=== PATIENT | male | born 1955 | race African-American/Black ===

== ENCOUNTER 2017-11-30 12:18 | Day surgery (SDC) | payer MEDICARE ==
[2017-11-30 14:51] LABS: Color Of CSF Supernatant COLORLESS (Colorless); Tube # 2; Unspun CSF Color COLORLESS (Colorless)
[2017-11-30 14:55] LABS: CSF Source CSF; Clarity Clear (Clear); Tube # 1
[2017-11-30 14:56] LABS: RBC Count - Manual 435 /cumm (None Seen); WBC/NonHematics Count - Manual 2 /cumm (0-5)
[2017-11-30 15:02] LABS: CSF, Glucose 74 mg/dl (40-70); CSF, Protein 41 mg/dL (15-40)
[2017-11-30 15:08] VITALS: BP 126/75; TEMP 97.1
--- NOTE | 2017-11-30 15:27 | RAD ---
LUMBAR PUNCTURE WITH FLUOROSCOPIC GUIDANCE: Date: 11/30/17 HISTORY: Syphilitic endocarditis. Evaluate for neurosyphilis. COMPARISON: None. EXPOSURE: 0.9 minutes. 925.9 mGy*cm^2. FINDINGS: Two views lumbar spine informatics manager radiograph demonstrate five lumbar-type vertebral bodies. Lumbar spine v ertebral body height is maintained. No fracture. Technically successful lumbar puncture for intrathecal contrast administration. A total of 10 mL of c lear CSF was collected. The patient tolerated the procedure well. No immediate or postprocedure compl ication. TECHNIQUE: Consent obtained for a lumbar puncture under fluoroscopic guidance. The L2-L3 level was deemed approp riate. Skin was prepped and draped in the sterile fashion. 1% lidocaine, buffered with sodium bicarbo steffen, was used for local anesthesia. Under fluoroscopic guidance, a 22 gauge spinal needle was advanc ed into the CSF space. A total of 10 mL of clear CSF was collected. The patient tolerated the procedu re well. No immediate or postprocedure complications. IMPRESSION: Successful lumbar puncture for CSF acquisition. POS: JULIANO
== END 2017-11-30 15:00 | disposition home or self-care (01) ==
LOC: RAD 12:18
PROVIDERS: ATTEND Internal Medicine Infectious Disease
PROC: 009U3ZZ Drainage of Spinal Canal, Percutaneous Approach (ICD-10-PCS; principal; 2017-11-30)
PROC: B01B1ZZ Fluoroscopy of Spinal Cord using Low Osmolar Contrast (ICD-10-PCS; 2017-11-30)
DX: A52.03 Syphilitic endocarditis (principal); Z88.0 Allergy status to penicillin
CPT/HCPCS: 62270; 82945; 84157; 86592; 87070; 87205; 89051

== ENCOUNTER 2018-03-07 13:26 | Emergency (ER) | payer MEDICARE ==
--- NOTE | 2018-03-07 14:16 | RAD ---
TWO VIEWS LEFT HIP: History: Left hip pain. FINDINGS: AP and frogleg views left hip obtained and demonstrate no evidence of left hip fractures, subluxation s, or bony lesions. IMPRESSION: Normal two views left hip. POS: JULIANO
[2018-03-07] MEDS ORDERED: predniSONE 20 MG TAB ONE (14:27)
== END 2018-03-07 14:19 | disposition home or self-care (01) ==
LOC: SCSER 13:26
DX: M16.12 Unilateral primary osteoarthritis, left hip (principal); E78.5 Hyperlipidemia, unspecified; G30.9 Alzheimer's disease, unspecified; F02.80 Dementia in other diseases classified elsewhere, unspecified severity, without behavioral disturbance, psychotic disturbance, mood disturbance, and anxiety; E11.9 Type 2 diabetes mellitus without complications; I10 Essential (primary) hypertension; F17.210 Nicotine dependence, cigarettes, uncomplicated; Z79.84 Long term (current) use of oral hypoglycemic drugs; Z79.899 Other long term (current) drug therapy; Z79.82 Long term (current) use of aspirin
CPT/HCPCS: J7506

== ENCOUNTER 2018-06-15 21:37 | Inpatient (IN) | payer MEDICARE ==
[2018-06-15 22:07] LABS: #Basophils 0.1 thou/uL (0.0-0.2); #Lymphocytes 1.3 thou/uL (1.20-3.40); #Monocytes 0.4 thou/uL (0.11-0.59); #Neutrophils 4.3 thou/uL (1.40-6.50); %Basophils 0.8 % (0.0-1.0); %Eosinophils 0.8 % (0.0-10.0); %Lymphocytes 21.6 % (21.0-51.0); %Monocytes 6.4 % (0.0-10.0); %Neutrophils 70.4 % (42.0-75.0); Hemoglobin 12.3 g/dL (14.0-18.0); Mean Corpuscular HGB CONC 34.3 g/dL (32.0-36.0); Mean Corpuscular Hemoglobin 31.3 pg (27.0-31.0); Mean Corpuscular Volume 91.2 fL (78.0-98.0); Mean Platelet Volume 6.9 fL (7.4-10.4); Platelet Count 265 thou/uL (130-400); Red Blood Cell (RBC) Count 3.94 mill/uL (4.70-6.10); White Blood Cell (WBC) Count 6.1 thou/uL (4.8-10.8)
[2018-06-15 22:28] LABS: ALT (SGPT) 16 U/L (8-55); AST (SGOT) 23 U/L (5-34); Albumin 4.3 g/dL (3.4-4.8); Alkaline Phosphatase 46 U/L (40-150); Anion Gap 16 mmol/L (10-20); BUN (Urea Nitrogen) 12 mg/dL (8.4-25.7); Bilirubin, Total 0.6 mg/dL (0.2-1.2); Calc. Creatinine Clearance 0 mL/min (70-130); Calcium 9.6 mg/dL (7.8-10.44); Carbon Dioxide 23 mmol/L (23-31); Chloride 82 mmol/L (98-107); Estimated GFR-MDRD 67; Globulin 2.7 g/dL (2.4-3.5); Glucose 91 mg/dL (80-115); Potassium 4.1 mmol/L (3.5-5.1)
[2018-06-15 22:43] LABS: Bilirubin Negative (Negative); Blood, Urine Negative (Negative); Clarity CLEAR (Clear); Glucose, Urine (Dipstick) Negative (Negative); Leukocyte Negative (Negative); Nitrite Negative (Negative); Protein, Urine (Dipstick) Negative (Neg-Trace); Specific Gravity, Urine 1.005 (1.002-1.036); Urobilinogen 0.2 mg/dL (0.2-1.0); pH, Urine 5.5 (5.0-9.0)
[2018-06-15 22:43] LABS: Sodium 117 mmol/L (136-145)
[2018-06-15] MEDS ORDERED: Ondansetron PF 4 MG/2 ML Vial ONE (23:50)
[2018-06-16] MEDS ORDERED: Sodium Chloride 0.9% 1,000 ML IV SCH (00:30)
[2018-06-16 02:02] VITALS: BMI 28.8
[2018-06-16 09:48] LABS: Anion Gap 13 mmol/L (10-20); BUN (Urea Nitrogen) 9 mg/dL (8.4-25.7); Calc. Creatinine Clearance 85 mL/min (70-130); Calcium 9.3 mg/dL (7.8-10.44); Carbon Dioxide 24 mmol/L (23-31); Chloride 89 mmol/L (98-107); Estimated GFR-MDRD 83; Glucose 81 mg/dL (80-115); Potassium 3.9 mmol/L (3.5-5.1); Sodium 122 mmol/L (136-145)
[2018-06-16 10:57] LABS: Osmolality, Urine 197 mOsm/kg (300-900)
[2018-06-16 11:01] LABS: Sodium, Urine 26 mmol/L (Not Available)
[2018-06-16] MEDS: Sodium Chloride 0.9% 1,000 ML IV SCH (13:29)
[2018-06-16 14:36] LABS: Anion Gap 11 mmol/L (10-20); BUN (Urea Nitrogen) 9 mg/dL (8.4-25.7); Calc. Creatinine Clearance 79 mL/min (70-130); Calcium 9.3 mg/dL (7.8-10.44); Carbon Dioxide 26 mmol/L (23-31); Chloride 90 mmol/L (98-107); Estimated GFR-MDRD 77; Glucose 123 mg/dL (80-115); Potassium 3.5 mmol/L (3.5-5.1); Sodium 123 mmol/L (136-145)
[2018-06-16 19:40] LABS: Anion Gap 14 mmol/L (10-20); BUN (Urea Nitrogen) 9 mg/dL (8.4-25.7); Calc. Creatinine Clearance 79 mL/min (70-130); Calcium 9.4 mg/dL (7.8-10.44); Carbon Dioxide 23 mmol/L (23-31); Chloride 92 mmol/L (98-107); Estimated GFR-MDRD 77; Glucose 167 mg/dL (80-115); Potassium 3.8 mmol/L (3.5-5.1); Sodium 125 mmol/L (136-145)
--- NOTE | 2018-06-16 20:42 | HP ---
CHIEF COMPLAINT: Abnormal labs and some worsening confusion. HISTORY OF PRESENT ILLNESS: Patient is a very pleasant 63-year-old male who comes in with a history of dementia, also has a history of positive diabetes, hypertension, tobacco abuse, and also positive treponema pallidum test. Patient has been being more confused, so his who is at the bedside bro ught the patient in, so her primary care doctor ordered some labs which indicated that the sodium was 119. The patient was asked to come into the hospital for further evaluation. The patient's is at the bedside states that he has lost about 20 pounds for the last several months. Also, he has no t been really eating very much; however, has been drinking 2-3, [address] Pepper daily. T he patient states "I do not like water." The patient denies any diarrhea, nausea, vomiting. Accordi ng to the patient, he does drink, but he drinks no water. He drinks only Diet Dr Pepper and patient' s states that he has not been eating very much either. Denies any fevers or any chills, any juan st pain, nausea, vomiting or diarrhea. REVIEW OF SYSTEMS: All negative except for the ones mentioned above in the HPI. There were some con cerns about fever; however, the patient's stated that his fever was 99.9 as low grade. PAST MEDICAL HISTORY: History of hyperlipidemia, hypertension, diabetes, Alzheimer's dementia. PAST SURGICAL HISTORY: Appendectomy. SOCIAL HISTORY: The patient currently still smokes a few cigarettes. Denies any alcohol or drug use . ALLERGIES: He has no known allergies. MEDICATIONS: Takes metformin 500 mg twice a day, lisinopril/hydrochlorothiazide 20 mg/25 mg once a d ay, lovastatin 20 mg daily, potassium 20 mEq daily, metoprolol 25 mg b.i.d., donepezil once a day and Namenda 5 mg once a day. PHYSICAL EXAMINATION: VITAL SIGNS: Temperature of 98.8, 91% on room air, 160/80, heart rate of 99. GENERAL: He is awake, alert, oriented x3. CARDIOVASCULAR: S1, S2 present. No murmurs, rubs or gallops. ABDOMEN: Soft, nontender. Bowel sounds are present. EXTREMITIES: No edema. LUNGS: Clear to auscultation. No rhonchi or wheezes noted. NEUROLOGIC: Neurological sanchez, no focal deficits noted. SKIN: Intact. No cuts, bleeding, or bruises noted. LABORATORY DATA: Laboratory results are as of the following; WBC of 6.1, hemoglobin of 12.3, hematoc rit of 35.9, platelets of 265. Chemistry: Sodium initially when he came in, it was 117, potassium o f 4.1, creatinine of 1.31, BUN of 12. LFTs were normal. TSH was 0.9. He also had a chest x-ray don e which essentially was normal. ASSESSMENT AND PLAN: The patient is a very pleasant 63-year-old male who presents to the hospital fo r abnormal laboratory data. 1. Acute metabolic encephalopathy, most likely secondary to hyponatremia. The patient's urine osmol ality was very low, it was 197. Urine appeared to be normal. Patient's serum osmolality was actuall y 261 was low also. Patient is currently on normal saline. His sodium has continued to improve. Al so, consult Nephrology and I did discuss the case with Nephrology also, possibly hypotonic hyponatrem ia. It does not look like SIADH. The patient's told me that her primary care doctor took her o ff of donepezil because they thought maybe that was worsening his confusion. Patient was checked for syphilis back, I believe in November and also had a CSF checked. CSF was negative for treponema pallid um antibody; however, the serum was positive. Gonorrhea was negative. HIV was negative. At this ti me, the patient was instructed to [facility]. Torin tapia, the states that patient has not gone since there was an issue with finances. She stated that she will take him next week once she gets paid. There is an allergy to PENICILLIN; however, juliocesar portillo's feels that this is most likely secondary to needles versus an actual PENICILLIN allergy. She has been with him for 14 years and does not recall anything and he is not really able to provide a very good history; however, he does agree that he is very scared of needles. 2. Hypertension. We will continue his medications. 3. Diabetes. We will continue his antidiabetics and check Accu-Cheks. 4. Mild acute kidney injury which has been resolved. 5. Smoking session, the patient was advised against smoking. 6. Deep venous thrombosis prophylaxis. We will put the patient on subcu heparin.
[2018-06-16] MEDS: Simvastatin 5 MG TAB PO SCH (21:23)
[2018-06-16] MEDS: Metoprolol Tartrate 25 MG TAB PO SCH (21:23)
--- NOTE | 2018-06-17 04:00 | CON ---
DATE OF CONSULTATION: 06/17/2018 CONSULTING PHYSICIAN: Trevin Ziegler MD REQUESTING PHYSICIAN: Lillian Herbert MD REASON FOR CONSULTATION: Symptomatic hyponatremia. IMPRESSION: 1. Severe hyponatremia. This is likely in the context of poor osmolar intake compounded by the continued use of hydrochlorothiazide. 2. Worsening mental status change, this level of hyponatremia is likely to be contributing to these mental status. PLAN: 1. Permanently discontinue hydrochlorothiazide. 2. IV fluid resuscitation with normal saline. 3. Encourage increased p.o. osmolar intake in the way of of increased animal meat consumption. 4. Further management to be dependent on the clinical course. HISTORY OF PRESENT ILLNESS: History is that of a 63-year-old gentleman who was brought into the hospital because of abnormal labs. The patient has been noted to be experiencing worsening mental status for which patient presented to the primary care physician. Laboratory investigation was done that revealed sodium of 119, so as need to admit this patient. The patient admitted to drinking essentially soda and not much of any p.o. intake. As a matter of according to record, the patient has lost about 20 pounds in the past few months. As a result of these severe hyponatremia, decision has been taken to involve Renal in the management of this case. PAST MEDICAL HISTORY: Significant for dyslipidemia, hypertension, Alzheimer's dementia, diabetes and history of syphilis infection. SOCIAL HISTORY: Significant for tobacco use. No alcohol, no illicit drug use. ALLERGIES: No known drug allergy. FAMILY HISTORY: None significantly related to the presenting illness. REVIEW OF SYSTEMS: Highly limited given the mental status of this patient. PHYSICAL EXAMINATION: GENERAL: The patient is in no obvious distress VITAL SIGNS: Afebrile, temperature 99, pulse 87, respiratory rate of 18, O2 sat 96% with a blood pressure 113/63. HEENT: Unremarkable. CARDIOVASCULAR SYSTEM: First and second heart sounds were heard. RESPIRATORY SYSTEM: Clear to auscultation. DIGESTIVE: Revealed a benign abdomen. EXTREMITIES: No peripheral edema. SKIN: No new gross rash. LYMPHATICS: No peripheral lymphadenopathy. BRIEF SUMMARY: A 63-year-old gentleman who presented here with mental status change, noted with severe hyponatremia. Thank you for this consultation. We will follow with you. AMY
[2018-06-17] MEDS: Aspirin 81 mg Enteric Coated Tablet PO SCH (08:34)
[2018-06-17] MEDS: Metoprolol Tartrate 25 MG TAB PO SCH ×2 (08:34→21:00)
[2018-06-17 09:35] LABS: Anion Gap 14 mmol/L (10-20); BUN (Urea Nitrogen) 8 mg/dL (8.4-25.7); Calc. Creatinine Clearance 81 mL/min (70-130); Calcium 9.9 mg/dL (7.8-10.44); Carbon Dioxide 23 mmol/L (23-31); Chloride 95 mmol/L (98-107); Estimated GFR-MDRD 79; Glucose 106 mg/dL (80-115); Potassium 3.9 mmol/L (3.5-5.1); Sodium 128 mmol/L (136-145)
[2018-06-17] MEDS: Sodium Chloride 0.9% 1,000 ML IV SCH (13:11)
--- NOTE | 2018-06-17 15:21 | PDOC.PN ---
- Subjective Encounter Start Date: 06/17/18 Encounter Start Time: 12:30 Subjective: pt up in bed no complains - Objective Vital Signs & Weight: Vital Signs (12 hours) Temp Pulse Resp BP Pulse Ox 06/17/18 11:57 98.5 F 69 20 119/62 98 06/17/18 08:00 98.4 F 77 16 130/73 98 06/17/18 07:40 96 06/17/18 04:50 98.1 F 68 14 128/75 100 Weight Weight 191 lb I&O: 06/16/18 06/17/18 06/18/18 06:59 06:59 06:59 Intake Total 525 1150 Balance 525 1150 Result Diagrams: 06/15/18 21:54 06/17/18 08:56 Additional Labs: Accuchecks 06/17/18 06/17/18 06/16/18 10:48 06:51 20:41 POC Glucose 161 H 97 231 H 06/16/18 17:47 POC Glucose 100 Phys Exam - Physical Examination Neck: no nodes, no JVD, supple, full ROM Respiratory: no wheezing, no rales, no rhonchi, wheezing present, clear to auscultation bilateral Cardiovascular: RRR, no significant murmur, no rub, gallop, irregular Dx/Plan (1) Hyponatremia Code(s): E87.1 - HYPO-OSMOLALITY AND HYPONATREMIA Status: Acute (2) Dementia Code(s): F03.90 - UNSPECIFIED DEMENTIA WITHOUT BEHAVIORAL DISTURBANCE Status: Acute (3) Diabetes Code(s): E11.9 - TYPE 2 DIABETES MELLITUS WITHOUT COMPLICATIONS Status: Acute - Plan pt does not eat much at home, low solute -: his Na has improved -: possible discharge in am when ok with nephrology -: pt's will take him to health clinic for abx for syphillis * . spoke with ID who stated to give him a dose now. Pt's states she does not think he is allergic to penicillin he is just afraid of needles. Pt is not really sure and is not reliable. Review of Systems - Review of Systems Cardiovascular: negative: chest pain, palpitations, orthopnea, paroxysmal nocturnal dyspnea, edema, light headedness, other Gastrointestinal: negative: Nausea, Vomiting, Abdominal Pain, Diarrhea, Constipation, Melena, Hematochezia, Other Genitourinary: negative: Dysuria, Frequency, Incontinence, Hematuria, Retention , Other - Medications/Allergies Allergies/Adverse Reactions: Allergies Allergy/AdvReac Type Severity Reaction Status Date / Time Penicillins Allergy Unknown Verified 05/21/14 12:50 Medications: Current Medications Aspirin (Ecotrin) 81 mg PO DAILY [facility] Last Admin: 06/17/18 08:34 Dose: 81 mg Metoprolol Tartrate (Lopressor) 25 mg PO BID [facility] Last Admin: 06/17/18 08:34 Dose: 25 mg Simvastatin (Zocor) 10 mg PO HS [facility] Last Admin: 06/16/18 21:23 Dose: 10 mg
[2018-06-17] MEDS: Simvastatin 5 MG TAB PO SCH (21:00)
--- NOTE | 2018-06-17 22:47 | PRG ---
DATE OF SERVICE: 06/17/2018 SUBJECTIVE: The patient was seen and examined, seems to be doing much better, much more interactive and noted with the following vital signs. PHYSICAL EXAMINATION: VITAL SIGNS: Afebrile with temperature 99.2, pulse 73, respiratory rate of 18, O2 sat of 95%, and bl ood pressure of 105/59. HEENT: Unremarkable. CARDIOVASCULAR SYSTEM: First and second heart sounds were heard. RESPIRATORY SYSTEM: Clear to auscultation. DIGESTIVE SYSTEM: Revealed a benign abdomen with positive bowel sounds. EXTREMITIES: No peripheral edema. SKIN: No new gross rash. LYMPHATICS: No peripheral lymphadenopathy. IMPRESSION: Hyponatremia, which is improved, sodium is up to 128 with improved mental status. PLAN: 1. Continue current supportive measures. 2. Continue to encourage increased p.o. intake. 3. Permanently discontinue hydrochlorothiazide.
[2018-06-18] MEDS ORDERED: Bicillin LA 2.4 MILL.UNITS/4 ML SYRINGE IM SCH ×2 (00:30→03:00)
[2018-06-18 04:49] LABS: Anion Gap 13 mmol/L (10-20); BUN (Urea Nitrogen) 13 mg/dL (8.4-25.7); Calc. Creatinine Clearance 81 mL/min (70-130); Calcium 9.4 mg/dL (7.8-10.44); Carbon Dioxide 23 mmol/L (23-31); Chloride 101 mmol/L (98-107); Estimated GFR-MDRD 79; Glucose 104 mg/dL (80-115); Sodium 133 mmol/L (136-145)
[2018-06-18] MEDS: Metoprolol Tartrate 25 MG TAB PO SCH (09:34)
[2018-06-18] MEDS: Aspirin 81 mg Enteric Coated Tablet PO SCH (09:34)
--- NOTE | 2018-06-18 11:07 | PRG ---
DATE OF SERVICE: 06/15/2018 SUBJECTIVE: The patient was seen and examined, seems to be doing much better, noted with the followi ng vital signs. PHYSICAL EXAMINATION: VITAL SIGNS: Afebrile with temperature 97.9, pulse 63, respiratory rate of 24, O2 sat 99% with a blo od pressure 130/76. HEENT EXAMINATION: Unremarkable with moist oral mucosa. No conjunctival injection or icterus. NECK: Supple. CARDIOVASCULAR SYSTEM: First and second heart sounds were heard. RESPIRATORY SYSTEM: Clear to auscultation. DIGESTIVE SYTEM: Revealed a benign abdomen with positive bowel sounds. EXTREMITIES: No peripheral edema. SKIN EXAMINATION: No new gross rash. LYMPHATICS: No peripheral lymphadenopathy. LABORATORY INVESTIGATION: Showed a sodium of 133. IMPRESSION: Hyponatremia in the context of low osmolar intake as well as hydrochlorothiazide usage, much improved. PLAN: 1. No need for IV fluids anymore. 2. Continue increased protein intake in the way of animal meat. 3. Permanently discontinue hydrochlorothiazide. 4. From the renal standpoint, the patient is good for discharge with a plan to follow up as an outpa tient.
[2018-06-18 12:44] VITALS: BP 124/69; TEMP 98.2
--- NOTE | 2018-06-18 21:03 | DIS ---
DATE OF ADMISSION: 06/15/2018 DATE OF DISCHARGE: 06/18/2018 DISCHARGE DIAGNOSES: 1. Severe hyponatremia secondary to hydrochlorothiazide, improved. 2. Acute metabolic encephalopathy secondary to #1, improved. 3. Hypertension, stable. 4. Diabetes mellitus type 2, stable. 5. Acute kidney injury, resolving. 6. Dementia, questionable type. 7. Treponema pallidum antibody positive. CONSULTATIONS: Dr. Ziegler with Nephrology Service. PERTINENT LAB AND X-RAY FINDINGS: Sodium ranged between 117-133, creatinine ranged between 1.09-1.31 . Estimated GFR ranging between 67-83. CBC showed a hemoglobin of 12, hematocrit 36, platelet count 265. Portable chest x-ray dated 06/15/2018 showed no acute cardiopulmonary process. HOSPITAL COURSE: Patient was initially admitted to the telemetry unit after initially presenting wit h altered mentation and hyponatremia. Patient was initially placed on low volume normal saline after patient was noted with hyponatremia with initial value of 117. The patient was treated for hyponatr emia, likely iatrogenic in the context of chronic hydrochlorothiazide exposure. The patient was disc ontinued on hydrochlorothiazide and monitored with serial sodium sampling showing overall improving v alues. The patient was evaluated by the Nephrology Service who recommended continuation of low volum e intravenous normal saline. The patient's overall mentation improved as well as appetite after michi ection of sodium values. The patient was noted ambulatory during the hospital course with telemetry monitoring showing sinus mechanism without evidence of acute arrhythmia or dysrhythmia. The patient with a known history of positive treponema pallidum antibody with initial workup in 11/2017. Current recommendations are to follow up with her primary care provider for consideration of antibiotic ther apy. Overall, patient remained clinically stable throughout the hospital course. I have examined th e patient at the time of discharge and discussed followup instructions. The patient's spouse verbali zed understanding and agreement and ready for discharge on 06/18/2018. DISCHARGE MEDICATIONS: 1. Lovastatin 20 mg p.o. at bedtime. 2. Namenda 5 mg p.o. b.i.d. 3. Metformin 500 mg p.o. b.i.d. 4. Metoprolol tartrate 25 mg p.o. b.i.d. 5. Potassium chloride 20 mEq p.o. daily. 6. Enteric-coated aspirin 81 mg p.o. daily. 7. Lisinopril 20 mg p.o. daily. FOLLOWUP: Patient will follow up with his primary care provider, Dr. Gray within 7 days of dischar ge. CONDITION ON DISCHARGE: Stable. ACTIVITY: Ad ed. DIET: ADA. CODE STATUS: FULL. DISPOSITION: Home, 06/18/2018.
== END 2018-06-18 13:26 | disposition home or self-care (01) | DRG 640 ==
LOC: ERS 21:37 → 2SE 22:56
PROVIDERS: ADMIT Family Medicine; ATTEND Family Medicine
DX: E87.1 Hypo-osmolality and hyponatremia (principal); G93.41 Metabolic encephalopathy; N17.9 Acute kidney failure, unspecified; E11.9 Type 2 diabetes mellitus without complications; G30.9 Alzheimer's disease, unspecified; F02.80 Dementia in other diseases classified elsewhere, unspecified severity, without behavioral disturbance, psychotic disturbance, mood disturbance, and anxiety; I10 Essential (primary) hypertension; E78.5 Hyperlipidemia, unspecified; F17.210 Nicotine dependence, cigarettes, uncomplicated; Z79.84 Long term (current) use of oral hypoglycemic drugs; Z88.0 Allergy status to penicillin
CPT/HCPCS: 36415; 36416; 80048; 80053; 81003; 83036; 83930; 83935; 84300; 84443; 85025; 90471; 90686; 93005; 96361; 96374; 99406; G0008; J0561; J2405

== ENCOUNTER 2019-08-21 17:15 | Inpatient (IN) | payer MEDICARE, SELFPAY ==
[2019-08-21 18:18] LABS: #Eosinphils 0.1 thou/uL (0.0-0.7); #Lymphocytes 1.2 thou/uL (1.20-3.40); #Monocytes 0.4 thou/uL (0.11-0.59); %Basophils 0.5 % (0.0-1.0); %Eosinophils 1.6 % (0.0-10.0); %Monocytes 5.6 % (0.0-10.0); %Neutrophils 74.3 % (42.0-75.0); Hemoglobin 13.8 g/dL (14.0-18.0); Mean Corpuscular HGB CONC 31.9 g/dL (32.0-36.0); Mean Corpuscular Hemoglobin 30.3 pg (27.0-31.0); Mean Corpuscular Volume 94.9 fL (78.0-98.0); Mean Platelet Volume 7.4 fL (7.4-10.4); Platelet Count 202 thou/uL (130-400); RBC Distribution Width 11.2 % (11.5-14.5); Red Blood Cell (RBC) Count 4.55 mill/uL (4.70-6.10); White Blood Cell (WBC) Count 6.7 thou/uL (4.8-10.8)
[2019-08-21 18:39] LABS: ALT (SGPT) 11 U/L (8-55); AST (SGOT) 19 U/L (5-34); Acetaminophen Less than 6.0 mcg/mL (10.0-30.0); Albumin 4.2 g/dL (3.4-4.8); Alcohol Less than 10 mg/dL (Less than 10); Alkaline Phosphatase 51 U/L (40-110); Anion Gap 21 mmol/L (10-20); BUN (Urea Nitrogen) 33 mg/dL (8.4-25.7); Bilirubin, Total 0.5 mg/dL (0.2-1.2); CK (CPK) 109 U/L (30-200); Calc. Creatinine Clearance 0 mL/min (70-130); Calcium 9.8 mg/dL (7.8-10.44); Carbon Dioxide 18 mmol/L (23-31); Chloride 106 mmol/L (98-107); Estimated GFR-MDRD 48; Globulin 3.1 g/dL (2.4-3.5); Glucose 171 mg/dL (80-115); Potassium 3.6 mmol/L (3.5-5.1); Protein, Total 7.3 g/dL (5.8-8.1); Salicylate Less than 8.0 mg/dL (15.0-30.0); Sodium 141 mmol/L (136-145)
--- NOTE | 2019-08-21 18:43 | CT ---
Exam: CT brain PROVIDED CLINICAL HISTORY: Altered mental status COMPARISON: 03/30/2017 FINDINGS: The ventricular system is normal in size and morphology. No evidence for intracranial hemorrhage or mass effect. The extracranial soft tissues and osseous structures demonstrate no evidence for an acute abnormality. Chronic microvascular ischemic changes involving the cerebral white matter are red emonstrated. IMPRESSION: No evidence for intracranial hemorrhage or mass effect.
--- NOTE | 2019-08-21 18:45 | RAD ---
EXAM: Portable chest PROVIDED CLINICAL HISTORY: Altered mental status COMPARISON: 05/21/2014 FINDINGS: Cardiac and mediastinal silhouette is within normal limits. No focal consolidation, pleural fluid or pneumothorax evident. IMPRESSION: No evidence for an acute cardiopulmonary process.
[2019-08-21 20:16] LABS: Actual Bicarbonate (HCO3a) 18.6 mEq/L (22-28); Analyzer IN Cardio ER; Base Excess (BEa) -6.2 mEq/L (-2.0 to +3.0); CO2 Tension 34.6 mmHg (35.0-45.0); Calcium, Ionized 1.17 mmol/L (1.12-1.30); Carboxyhemoglobin (COHb) 0.9 gm% (0.0-3.0); Hemoglobin (Hb) 12.4 g/dL (14.0-18.0); O2 Tension (PaO2) 85.5 mmHg (> 80.0); Potassium - ABG Lab 3.68 mmol/L (3.70-5.30); pH, Arterial 7.35 (7.35-7.45)
[2019-08-21 20:24] LABS: Puncture Site RRA
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
[2019-08-21] MEDS ORDERED: Bisacodyl 5 MG TAB PO PRN (21:44)
[2019-08-21] MEDS ORDERED: Bisacodyl 10 MG SUPP PR PRN (21:44)
[2019-08-21] MEDS ORDERED: Senokot S 8.6-50 MG TAB PO PRN (21:44)
[2019-08-21] MEDS ORDERED: Ondansetron ODT 4 MG TAB PO PRN (21:44)
[2019-08-21] MEDS ORDERED: Dextrose 50% Abboject 50 ML SYRINGE SLOW IVP PRN (21:55)
[2019-08-21] MEDS ORDERED: Dextrose 5% in Water 1,000 ML IV PRN (21:55)
[2019-08-21] MEDS: Sodium Chloride 0.9% 1,000 ML IV SCH (22:55)
[2019-08-22 01:10] VITALS: BMI 28.8
[2019-08-22 05:30] LABS: #Eosinphils 0.1 thou/uL (0.0-0.7); #Lymphocytes 0.8 thou/uL (1.20-3.40); #Monocytes 0.3 thou/uL (0.11-0.59); #Neutrophils 3.1 thou/uL (1.40-6.50); %Basophils 0.2 % (0.0-1.0); %Eosinophils 1.6 % (0.0-10.0); %Lymphocytes 18.4 % (21.0-51.0); %Monocytes 6.6 % (0.0-10.0); %Neutrophils 73.3 % (42.0-75.0); Hemoglobin 11.8 g/dL (14.0-18.0); Mean Corpuscular HGB CONC 32.8 g/dL (32.0-36.0); Mean Corpuscular Hemoglobin 30.2 pg (27.0-31.0); Mean Corpuscular Volume 92.1 fL (78.0-98.0); Mean Platelet Volume 6.9 fL (7.4-10.4); Platelet Count 151 thou/uL (130-400); Red Blood Cell (RBC) Count 3.89 mill/uL (4.70-6.10); White Blood Cell (WBC) Count 4.2 thou/uL (4.8-10.8)
[2019-08-22 05:53] LABS: Anion Gap 12 mmol/L (10-20); BUN (Urea Nitrogen) 26 mg/dL (8.4-25.7); Calc. Creatinine Clearance 76 mL/min (70-130); Calcium 8.6 mg/dL (7.8-10.44); Carbon Dioxide 21 mmol/L (23-31); Chloride 109 mmol/L (98-107); Estimated GFR-MDRD 83; Glucose 103 mg/dL (80-115); Potassium 3.2 mmol/L (3.5-5.1); Sodium 139 mmol/L (136-145)
[2019-08-22 06:17] LABS: Thyroid Stimulating Hormone 0.6525 uIU/mL (0.35-4.94)
[2019-08-22 08:40] LABS: Syphilis Antibody REACTIVE (Nonreactive)
[2019-08-22] MEDS: Aspirin 81 mg Enteric Coated Tablet PO SCH (08:55)
[2019-08-22] MEDS: Folic Acid 1 MG TAB PO SCH (08:55)
[2019-08-22] MEDS: Famotidine 20 MG TAB PO SCH ×2 (08:55→22:28)
[2019-08-22] MEDS: Metoprolol Tartrate 25 MG TAB PO SCH ×2 (08:55→22:29)
[2019-08-22] MEDS: Multivitamin W/ Minerals 1 TAB PO SCH (08:55)
[2019-08-22] MEDS: Thiamine 100 MG TAB PO SCH (08:56)
[2019-08-22] MEDS: Sodium Chloride 0.9% 1,000 ML IV SCH (08:56)
[2019-08-22] MEDS: Enoxaparin Sodium 40 MG/0.4 ML SYRINGE SC SCH (08:56)
[2019-08-22] MEDS ORDERED: FLU VACC QS2019-20(6MOS UP)/PF 60 MCG/0.5 ML SYRINGE IM ONE (09:00)
--- NOTE | 2019-08-22 12:38 | PDOC.HOSPP ---
- Subjective Encounter Date: 08/22/19 Encounter Time: 10:00 Subjective: awake, is walking in hallway, not oriented - Objective Vital Signs & Weight: Vital Signs (12 hours) Temp Pulse Resp BP Pulse Ox 08/22/19 11:40 98.2 F 73 28 H 162/77 H 99 08/22/19 07:50 97.9 F 75 20 180/91 H 97 08/22/19 04:00 98.4 F 73 20 174/91 H 100 Weight Weight 173 lb 3.2 oz I&O: 08/21/19 08/22/19 08/23/19 06:59 06:59 06:59 Intake Total 300 Balance 300 Result Diagrams: 08/22/19 05:05 08/22/19 05:05 Hospitalist ROS - Medication Medications: Active Medications Generic Name Dose Route Start Last Admin Trade Name Cirilo PRN Reason Stop Dose Admin Aspirin 81 mg 08/22/19 09:00 08/22/19 08:55 Ecotrin PO 81 mg DAILY SHAY Administration Enoxaparin Sodium 40 mg 08/22/19 09:00 08/22/19 08:56 Lovenox SC 40 mg 09 SHAY Administration Famotidine 20 mg 08/22/19 09:00 08/22/19 08:55 Pepcid PO 20 mg BID SHAY Administration Folic Acid 1 mg 08/22/19 09:00 08/22/19 08:55 Folvite PO 1 mg DAILY SHAY Administration Iron/Minerals/Multivitamins 1 tab 08/22/19 09:00 08/22/19 08:55 Theragran M PO 1 tab DAILY SHAY Administration Memantine 5 mg 08/22/19 09:00 08/22/19 08:56 Namenda PO 5 mg BID SHAY Administration Metoprolol Tartrate 25 mg 08/22/19 09:00 08/22/19 08:55 Lopressor PO 25 mg BID SHAY Administration Thiamine HCl 100 mg 08/22/19 09:00 08/22/19 08:56 Thiamine PO 100 mg DAILY SHAY Administration - Exam General Appearance: awake alert Eye: PERRL, anicteric sclera ENT: no oropharyngeal lesions, moist mucosa Neck: supple, no JVD Heart: RRR, no murmur, no gallops Respiratory: no wheezes, no rales Gastrointestinal: soft, non-tender, non-distended, normal bowel sounds Extremities: no cyanosis, no edema Neurological: cranial nerve grossly intact, no focal deficits Hosp A/P (1) MITZY (acute kidney injury) Code(s): N17.9 - ACUTE KIDNEY FAILURE, UNSPECIFIED Status: Acute (2) Hypokalemia Code(s): E87.6 - HYPOKALEMIA Status: Acute (3) Acute metabolic encephalopathy Code(s): G93.41 - METABOLIC ENCEPHALOPATHY Status: Acute (4) DM type 2 (diabetes mellitus, type 2) Status: Chronic Qualifiers: Diabetes mellitus remote computer terminal operator insulin use: without remote computer terminal operator use (5) Dementia Code(s): F03.90 - UNSPECIFIED DEMENTIA WITHOUT BEHAVIORAL DISTURBANCE Status: Chronic Qualifiers: Dementia type: unspecified type Dementia behavioral disturbance: with behavioral disturbance Qualified Code(s): F03.91 - Unspecified dementia with behavioral disturbance (6) Hyperlipidemia Code(s): E78.5 - HYPERLIPIDEMIA, UNSPECIFIED Status: Chronic Qualifiers: Hyperlipidemia type: unspecified Qualified Code(s): E78.5 - Hyperlipidemia , unspecified (7) Hypertension Code(s): I10 - ESSENTIAL (PRIMARY) HYPERTENSION Status: Chronic Qualifiers: Hypertension type: essential hypertension Qualified Code(s): I10 - Essential (primary) hypertension (8) Tobacco abuse Code(s): Z72.0 - TOBACCO USE Status: Chronic - Plan urine drug screen rpr titer is low, had prior similar titer with FTA-ABS+ve in , await opinion is allergic to pcn, likely wont need any treatment if he was treated before etiology unclear for encephalopathy, no motor deficits, is eating well renal function is trending down to baseline MRI with contrast electrolytes were replaced on folic acid, thiamine, asp, namenda, lopressor dc iv fluids switch to inpatient status
[2019-08-22 14:18] LABS: Bacteria/HPF None Seen HPF (None Seen); Bilirubin Negative (Negative); Blood, Urine Negative (Negative); Clarity Clear (Clear); Glucose, Urine (Dipstick) 50 mg/dL (Negative); Leukocyte Negative Leu/uL (Negative); Nitrite Negative (Negative); Protein, Urine (Dipstick) 30 mg/dL (Neg-Trace); RBC/HPF 0-3 HPF (0-3); Squamous Epithelial 0-3 HPF (0-3)
[2019-08-22 14:20] LABS: Urine Culture Reflex Yes Yes
[2019-08-22 14:46] LABS: Amphetamine Not Detected (NotDetected); Barbiturates Screen Not Detected (NotDetected); Benzodiazepine Screen Not Detected (NotDetected); Cocaine Metabolite Screen Not Detected (NotDetected); Medtox Control Line Valid? VALID (VALID); Medtox Reader # READER 1; Methadone Not Detected (NotDetected); Methamphetamine Not Detected (NotDetected); Opiate Screen Not Detected (NotDetected); Oxycodone Screen Not Detected (NotDetected); Phencyclidine (PCP) Not Detected (NotDetected); THC/Cannabinoid Screen Not Detected (NotDetected); Tricyclic Screen Not Detected (NotDetected)
--- NOTE | 2019-08-22 14:52 | MRI ---
MRI Brain WO Con: 08/22/2019 12:43 PM CLINICAL HISTORY: 64-year-old male with confusion and altered mental status. TECHNIQUE: Multiplanar, multisequence images were obtained of the brain. COMPARISON: CT of the brain dated August 21, 2019 FINDINGS: Motion artifact limits image detail. Extra axial spaces: There is mild generalized cerebral and cerebellar atrophy.. Hemorrhage: None. Ventricular system: Normal in size and morphology for the patient's age. Basal cisterns: Normal. Cerebral parenchyma: There is moderate to severe chronic small vessel white matter ischemic change. T here is a focus of or stricture diffusion involving the left globus pallidus with associated T2 hyperintensity consistent with an acute to subacute lacunar infarction. No additional acute infarct i s demonstrated.. Midline shift: None. Cerebellum: Normal. Brainstem: Normal. OTHER: Calvarium: Normal. Vascular system: Flow-voids were difficult to assess on the T2-weighted imaging due to motion artifac t. Visualized Paranasal sinuses: Small mucus retention cyst is seen within the left sphenoid sinus.. Visualized Orbits: Normal. Visualized upper cervical spine: Normal. Sella and skull base: Normal. IMPRESSION: 1. Limitations examination due to motion artifact. 2. Acute to subacute lacunar infarction involving the left globus pallidus. 3. Moderate to severe chronic small vessel white matter ischemic change with mild generalized cerebra l and cerebellar atrophy.
[2019-08-22] MEDS ORDERED: AMOXicillin 250 MG CAP PO SCH (15:30)
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
--- NOTE | 2019-08-22 20:54 | ULT ---
EXAM: Carotid Doppler PROVIDED CLINICAL HISTORY: Stroke COMPARISON: None FINDINGS: Grayscale and color Doppler sonography with spectral analysis was performed of the extracranial carot id system bilaterally. There is elevation of peak systolic velocity within the mid left internal carotid artery to 138 cm/s with a ICA to CCA ratio of 1.2. There is no evidence for a hemodynamically significant right internal carotid artery stenosis by peak systolic velocity or ratio criteria. Antegrade flow is seen in the vertebral arteries. IMPRESSION: Nonspecific elevation of peak systolic velocity within the left internal carotid artery without corre sponding elevation of the ICA to CCA ratio. This could reflect a 50-69% stenosis.
[2019-08-22] MEDS: Atorvastatin Calcium 20 MG TAB PO SCH (22:29)
[2019-08-23] MEDS: Thiamine 100 MG TAB PO SCH (08:32)
[2019-08-23] MEDS: Famotidine 20 MG TAB PO SCH ×2 (08:32→23:02)
[2019-08-23] MEDS: Aspirin 81 mg Enteric Coated Tablet PO SCH (08:32)
[2019-08-23] MEDS: Acetaminophen 325 MG TAB PO PRN (08:32)
[2019-08-23] MEDS: Metoprolol Tartrate 25 MG TAB PO SCH ×2 (08:32→23:02)
[2019-08-23] MEDS: Folic Acid 1 MG TAB PO SCH (08:32)
[2019-08-23] MEDS: Multivitamin W/ Minerals 1 TAB PO SCH (08:32)
[2019-08-23] MEDS: Enoxaparin Sodium 40 MG/0.4 ML SYRINGE SC SCH (08:33)
[2019-08-23 10:34] LABS: PTT 39.7 SEC (22.9-36.1); Prothrombin Time 13.2 SEC (12.0-14.7)
[2019-08-23] MEDS: HumaLOG 300 UNITS/3 ML VIAL SC PRN (11:45)
[2019-08-23] MEDS ORDERED: Lorazepam 2 MG/ML VIAL SLOW IVP PRN (11:57)
[2019-08-23] MEDS ORDERED: Procaine Penicillin 1,200,000 UNITS/2 ML SYRINGE IM SCH ×2 (12:00)
[2019-08-23] MEDS ORDERED: Lorazepam 2 MG/ML VIAL IM PRN (12:10)
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
[2019-08-23] MEDS: Atorvastatin Calcium 20 MG TAB PO SCH (23:02)
[2019-08-24] MEDS ORDERED: Potassium Chloride 20 MEQ TAB PO SCH (01:30)
[2019-08-24] MEDS ORDERED: Procaine Penicillin 1,200,000 UNITS/2 ML SYRINGE IM SCH (09:00)
[2019-08-24] MEDS: Folic Acid 1 MG TAB PO SCH (09:26)
[2019-08-24] MEDS: Aspirin 81 mg Enteric Coated Tablet PO SCH (09:26)
[2019-08-24] MEDS: Metoprolol Tartrate 25 MG TAB PO SCH ×2 (09:26→21:01)
[2019-08-24] MEDS: Famotidine 20 MG TAB PO SCH ×2 (09:26→21:01)
[2019-08-24] MEDS: Multivitamin W/ Minerals 1 TAB PO SCH (09:26)
[2019-08-24] MEDS: Thiamine 100 MG TAB PO SCH (09:26)
[2019-08-24] MEDS: Procaine Penicillin 1,200,000 UNITS/2 ML SYRINGE IM SCH (09:27)
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
[2019-08-24] MEDS: HumaLOG 300 UNITS/3 ML VIAL SC PRN ×2 (12:06→17:21)
[2019-08-24] MEDS: Atorvastatin Calcium 20 MG TAB PO SCH (21:01)
[2019-08-25] MEDS ORDERED: Loperamide HCl 2 MG CAP PO SCH (01:00)
[2019-08-25 05:31] LABS: ALT (SGPT) 13 U/L (8-55); AST (SGOT) 19 U/L (5-34); Albumin 3.3 g/dL (3.4-4.8); Alkaline Phosphatase 41 U/L (40-110); Anion Gap 9 mmol/L (10-20); BUN (Urea Nitrogen) 16 mg/dL (8.4-25.7); Bilirubin, Total 0.7 mg/dL (0.2-1.2); Calc. Creatinine Clearance 70 mL/min (70-130); Calcium 8.6 mg/dL (7.8-10.44); Carbon Dioxide 27 mmol/L (23-31); Chloride 107 mmol/L (98-107); Estimated GFR-MDRD 75; Globulin 2.6 g/dL (2.4-3.5); Glucose 162 mg/dL (80-115); Potassium 3.1 mmol/L (3.5-5.1); Protein, Total 5.9 g/dL (5.8-8.1); Sodium 140 mmol/L (136-145)
[2019-08-25 06:04] LABS: Hemoglobin 10.4 g/dL (14.0-18.0); Mean Corpuscular HGB CONC 32.4 g/dL (32.0-36.0); Mean Corpuscular Hemoglobin 30.1 pg (27.0-31.0); Mean Platelet Volume 7.4 fL (7.4-10.4); Platelet Count 144 thou/uL (130-400); Red Blood Cell (RBC) Count 3.47 mill/uL (4.70-6.10); White Blood Cell (WBC) Count 4.6 thou/uL (4.8-10.8)
[2019-08-25 06:23] LABS: Band 9 % (5-11); Eosinophils 3 % (0-10); Lymphocytes 24 % (21-51); MDiff Complete? YES; Monocytes 16 % (0-10); Neutrophil 46 % (42-75); Platelet Morphology Comment Appears Adequate; Reactive Lymphocytes 2 % (0-10)
[2019-08-25] MEDS: Thiamine 100 MG TAB PO SCH (09:20)
[2019-08-25] MEDS: Famotidine 20 MG TAB PO SCH ×2 (09:20→20:56)
[2019-08-25] MEDS: Multivitamin W/ Minerals 1 TAB PO SCH (09:20)
[2019-08-25] MEDS: Folic Acid 1 MG TAB PO SCH (09:20)
[2019-08-25] MEDS: Metoprolol Tartrate 25 MG TAB PO SCH ×2 (09:20→20:56)
[2019-08-25] MEDS: Procaine Penicillin 1,200,000 UNITS/2 ML SYRINGE IM SCH (09:20)
[2019-08-25] MEDS: Aspirin 81 mg Enteric Coated Tablet PO SCH (11:37)
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
[2019-08-25] MEDS: Atorvastatin Calcium 20 MG TAB PO SCH (20:56)
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
[2019-08-26] MEDS ORDERED: PROPOFOL 200 MG/20 ML VIAL ONE (09:45)
[2019-08-26] MEDS: Multivitamin W/ Minerals 1 TAB PO SCH (10:25)
[2019-08-26] MEDS: Folic Acid 1 MG TAB PO SCH (10:26)
[2019-08-26] MEDS: Aspirin 81 mg Enteric Coated Tablet PO SCH (10:26)
[2019-08-26] MEDS: Thiamine 100 MG TAB PO SCH (10:26)
[2019-08-26] MEDS: Metoprolol Tartrate 25 MG TAB PO SCH ×2 (10:26→21:16)
[2019-08-26 11:10] LABS: CMV IgG AB Greater than 10.00 U/mL (0.00-0.59)
[2019-08-26] MEDS: Famotidine 20 MG TAB PO SCH ×2 (11:13→21:16)
[2019-08-26] MEDS: Procaine Penicillin 1,200,000 UNITS/2 ML SYRINGE IM SCH (11:13)
[2019-08-26] MEDS ORDERED: Fentanyl 100 MCG/2 ML VIAL ONE (14:45)
[2019-08-26] MEDS ORDERED: Midazolam HCl 2 mg/2 ml Vial ONE ×2 (14:45→16:33)
[2019-08-26] MEDS ORDERED: Propofol 500 MG/50 ML VIAL ONE (16:33)
[2019-08-26 18:00] LABS: Color Of CSF Supernatant COLORLESS (Colorless); Tube # 2; Unspun CSF Color COLORLESS (Colorless)
[2019-08-26 18:04] LABS: CSF Source CSF; Clarity Clear (Clear); Tube # 4
[2019-08-26 18:19] LABS: CSF, Glucose 94 mg/dl (40-70); CSF, Protein 38 mg/dL (15-40)
[2019-08-26] MEDS: Acetaminophen 325 MG TAB PO PRN (19:18)
[2019-08-26] MEDS: Atorvastatin Calcium 20 MG TAB PO SCH (21:16)
--- NOTE | 2019-08-27 07:55 | RAD ---
Lumbar puncture fluoroscopic guided HISTORY: Altered mental status. Meningitis. FINDINGS: After explaining the procedure and answering all questions, the lower back was prepped and draped in usual sterile fashion. Anesthesia performed by the anesthesia department. Sterile technique, buffered local anesthesia, fluoroscopic guidance, and a right posterolateral L3-4 approach were used to carefully advance the tip of a 20-gauge spinal needle to the thecal sac. A total volume of 8 cc clear CSF was collected and submitted to pathology for evaluation. Opening pressure wa s not elevated. Needle was removed. Patient tolerated the procedure well and was returned in unchanged condition. Fluoroscopy time 0.2 minutes. IMPRESSION: Technically successful fluoroscopic guided lumbar puncture. Pathology is pending.
[2019-08-27] MEDS: Aspirin 81 mg Enteric Coated Tablet PO SCH (08:59)
[2019-08-27] MEDS: Folic Acid 1 MG TAB PO SCH (08:59)
[2019-08-27] MEDS: Procaine Penicillin 1,200,000 UNITS/2 ML SYRINGE IM SCH (08:59)
[2019-08-27] MEDS: Metoprolol Tartrate 25 MG TAB PO SCH ×2 (08:59→21:10)
[2019-08-27] MEDS: Famotidine 20 MG TAB PO SCH ×2 (08:59→21:09)
[2019-08-27] MEDS: Multivitamin W/ Minerals 1 TAB PO SCH (09:00)
[2019-08-27] MEDS: Thiamine 100 MG TAB PO SCH (09:00)
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
[2019-08-27] MEDS: HumaLOG 300 UNITS/3 ML VIAL SC PRN ×2 (11:21→16:50)
[2019-08-27] MEDS: Atorvastatin Calcium 20 MG TAB PO SCH (21:09)
[2019-08-28 07:23] LABS: #Eosinphils 0.1 thou/uL (0.0-0.7); #Lymphocytes 2.1 thou/uL (1.20-3.40); #Monocytes 0.6 thou/uL (0.11-0.59); #Neutrophils 2.8 thou/uL (1.40-6.50); %Eosinophils 2.4 % (0.0-10.0); %Lymphocytes 37.5 % (21.0-51.0); %Monocytes 9.9 % (0.0-10.0); %Neutrophils 50.2 % (42.0-75.0); Hemoglobin 11.5 g/dL (14.0-18.0); Mean Corpuscular Hemoglobin 31.5 pg (27.0-31.0); Mean Corpuscular Volume 95.5 fL (78.0-98.0); Mean Platelet Volume 6.6 fL (7.4-10.4); Platelet Count 219 thou/uL (130-400); RBC Distribution Width 11.2 % (11.5-14.5); Red Blood Cell (RBC) Count 3.65 mill/uL (4.70-6.10); White Blood Cell (WBC) Count 5.6 thou/uL (4.8-10.8)
[2019-08-28 07:39] LABS: ALT (SGPT) 18 U/L (8-55); AST (SGOT) 25 U/L (5-34); Albumin 3.6 g/dL (3.4-4.8); Alkaline Phosphatase 44 U/L (40-110); Anion Gap 11 mmol/L (10-20); BUN (Urea Nitrogen) 13 mg/dL (8.4-25.7); Bilirubin, Total 0.6 mg/dL (0.2-1.2); Calc. Creatinine Clearance 74 mL/min (70-130); Calcium 9.4 mg/dL (7.8-10.44); Carbon Dioxide 32 mmol/L (23-31); Chloride 103 mmol/L (98-107); Estimated GFR-MDRD 80; Glucose 125 mg/dL (80-115); Potassium 3.4 mmol/L (3.5-5.1); Protein, Total 6.6 g/dL (5.8-8.1); Sodium 143 mmol/L (136-145)
[2019-08-28] MEDS: Metoprolol Tartrate 25 MG TAB PO SCH ×2 (08:34→21:27)
[2019-08-28] MEDS: Losartan 25 MG TAB PO SCH (08:34)
[2019-08-28] MEDS: Famotidine 20 MG TAB PO SCH ×2 (08:34→21:26)
[2019-08-28] MEDS: Thiamine 100 MG TAB PO SCH (08:34)
[2019-08-28] MEDS: Folic Acid 1 MG TAB PO SCH (08:34)
[2019-08-28] MEDS: Aspirin 81 mg Enteric Coated Tablet PO SCH (08:34)
[2019-08-28] MEDS: Amlodipine 10 MG TAB PO SCH (08:34)
[2019-08-28] MEDS: Multivitamin W/ Minerals 1 TAB PO SCH (08:34)
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
[2019-08-28] MEDS: Procaine Penicillin 1,200,000 UNITS/2 ML SYRINGE IM SCH (10:52)
[2019-08-28] MEDS: HumaLOG 300 UNITS/3 ML VIAL SC PRN (11:57)
[2019-08-28] MEDS: Atorvastatin Calcium 20 MG TAB PO SCH (21:26)
[2019-08-28] MEDS: Acetaminophen 325 MG TAB PO PRN (23:55)
[2019-08-29] MEDS ORDERED: HumaLOG 300 UNITS/3 ML VIAL SC PRN (00:23)
[2019-08-29] MEDS ORDERED: Temazepam 15 MG CAP PO SCH (00:30)
[2019-08-29] MEDS: Multivitamin W/ Minerals 1 TAB PO SCH (08:52)
[2019-08-29] MEDS: Thiamine 100 MG TAB PO SCH (08:52)
[2019-08-29] MEDS: Famotidine 20 MG TAB PO SCH ×2 (08:52→21:22)
[2019-08-29] MEDS: Folic Acid 1 MG TAB PO SCH (08:52)
[2019-08-29] MEDS: Metoprolol Tartrate 25 MG TAB PO SCH ×2 (08:53→21:22)
[2019-08-29] MEDS: Amlodipine 10 MG TAB PO SCH (08:53)
[2019-08-29] MEDS: Losartan 25 MG TAB PO SCH (08:53)
[2019-08-29] MEDS: Aspirin 81 mg Enteric Coated Tablet PO SCH (08:53)
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
[2019-08-29] MEDS: Procaine Penicillin 1,200,000 UNITS/2 ML SYRINGE IM SCH (12:26)
[2019-08-29 13:11] LABS: West Nile Virus IgG Ab - CSF Negative (Negative); West Nile Virus IgM Ab - CSF Negative (Negative)
[2019-08-29] MEDS: Atorvastatin Calcium 20 MG TAB PO SCH (21:22)
[2019-08-30] MEDS: Amlodipine 10 MG TAB PO SCH (09:58)
[2019-08-30] MEDS: Multivitamin W/ Minerals 1 TAB PO SCH (09:58)
[2019-08-30] MEDS: Aspirin 81 mg Enteric Coated Tablet PO SCH (09:59)
[2019-08-30] MEDS: Metoprolol Tartrate 25 MG TAB PO SCH ×2 (09:59→21:23)
[2019-08-30] MEDS: Famotidine 20 MG TAB PO SCH ×2 (09:59→21:23)
[2019-08-30] MEDS: Thiamine 100 MG TAB PO SCH (09:59)
[2019-08-30] MEDS: Losartan 25 MG TAB PO SCH (09:59)
[2019-08-30] MEDS: Folic Acid 1 MG TAB PO SCH (09:59)
[2019-08-30] MEDS: Procaine Penicillin 1,200,000 UNITS/2 ML SYRINGE IM SCH (09:59)
[2019-08-30 10:11] LABS: Enterovirus RT-PCR Negative (Negative)
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
[2019-08-30] MEDS: Atorvastatin Calcium 20 MG TAB PO SCH (21:23)
[2019-08-31] MEDS: Metoprolol Tartrate 25 MG TAB PO SCH ×2 (08:19→22:30)
[2019-08-31] MEDS: Amlodipine 10 MG TAB PO SCH (08:20)
[2019-08-31] MEDS: Aspirin 81 mg Enteric Coated Tablet PO SCH (08:20)
[2019-08-31] MEDS: Losartan 25 MG TAB PO SCH (08:20)
[2019-08-31] MEDS: Thiamine 100 MG TAB PO SCH (08:20)
[2019-08-31] MEDS: Folic Acid 1 MG TAB PO SCH (08:20)
[2019-08-31] MEDS: Famotidine 20 MG TAB PO SCH ×2 (08:20→22:31)
[2019-08-31] MEDS: Multivitamin W/ Minerals 1 TAB PO SCH (08:20)
[2019-08-31] MEDS: Procaine Penicillin 1,200,000 UNITS/2 ML SYRINGE IM SCH (08:25)
[2019-08-31] MEDS: HumaLOG 300 UNITS/3 ML VIAL SC PRN (13:04)
--- NOTE | 2019-08-31 15:41 | PRG ---
DATE OF SERVICE: 08/31/2019 SUBJECTIVE: The patient seen at bedside, walking in the corridor. Denies any complaint. Has right hand blister skin which is improving as per nursing staff. The patient denies any headache, dizziness, nausea, vomiting, diarrhea, or fever. OBJECTIVE: VITAL SIGNS: Blood pressure 128/75, temperature 98.6, pulse 66, respirations 16, oxygen saturation 94%. GENERAL: The patient is sitting in bed comfortably, in no distress. Conjunctivae normal. Oral mucosa moist. NECK: Supple. No JVD. CHEST: Normal vesicular breathing. HEART: Sounds normal. ABDOMEN: Soft. Negative edema of feet. SKIN: Post blister healing skin noted right hand. LABORATORY DATA: RPR titer 1:4. Syphilis IgG IgM antibody reactive. CMV IgG greater than 10. HSV-1 IgG antibody 24.80. HSV-2 IgG 13.50. IMPRESSION: 1. Acute cerebrovascular accident with the left globus pallidus infarction. Continue antiplatelet therapy. Continue statin. 2. Neurosyphilis in adult, RPR titer and syphilis IgG IgM antibody positive. The patient evaluated by neuro recommended to continue procaine penicillin intramuscular daily 240,000 units until August and probenecid for 2 weeks. 3. Diabetes mellitus. Continue monitoring blood sugar. 4. Hypertension. Continue monitoring blood pressure. 5. Acute kidney injury, resolved. 6. Acute metabolic toxic encephalopathy with possible multifactorial Secondary to CVA , MITZY , Neurosyphilis, underlying dementia. Continue supportive care. PLAN: Discussed with the nursing staff. Job ID: [id number] MTDD
[2019-08-31] MEDS: Atorvastatin Calcium 20 MG TAB PO SCH (22:31)
[2019-09-01] MEDS ORDERED: diphenhydrAMINE 50 MG CAP PO SCH (00:30)
[2019-09-01] MEDS: Thiamine 100 MG TAB PO SCH (11:52)
[2019-09-01] MEDS: Aspirin 81 mg Enteric Coated Tablet PO SCH (11:52)
[2019-09-01] MEDS: Famotidine 20 MG TAB PO SCH (11:52)
[2019-09-01] MEDS: Losartan 25 MG TAB PO SCH (11:52)
[2019-09-01] MEDS: Metoprolol Tartrate 25 MG TAB PO SCH (11:52)
[2019-09-01] MEDS: Amlodipine 10 MG TAB PO SCH (11:53)
[2019-09-01] MEDS: Multivitamin W/ Minerals 1 TAB PO SCH (11:54)
[2019-09-01] MEDS: Folic Acid 1 MG TAB PO SCH (11:54)
[2019-09-01] MEDS: Procaine Penicillin 1,200,000 UNITS/2 ML SYRINGE IM SCH (12:18)
--- NOTE | 2019-09-01 13:39 | PRG ---
DATE OF SERVICE: 09/01/2019 SUBJECTIVE: The patient is seen at bedside, not in distress. No complaints of nausea, vomiting, diarrhea, chest pain, or shortness of breath. OBJECTIVE: VITAL SIGNS: Blood pressure 128/87, temperature 97.8, pulse 100, respirations 18, and oxygen saturation 97%. IMPRESSION: 1. Acute cerebrovascular accident with left globus pallidus infarction. Continue antiplatelet therapy. Continue statin. 2. Neurosyphilis. RPR titer and syphilis IgG, IgM antibody positive. The patient evaluated by Infectious Disease and recommended to continue procaine, penicillin intramuscular daily and probenecid for two weeks, completing on September 06, 2019. Repeat labs in the morning. 3. Diabetes mellitus. Continue monitoring blood sugar. 4. Hypertension. Continue monitoring blood pressure, currently stable. 5. Acute kidney injury, resolved. 6. Acute metabolic and toxic encephalopathy, possible underlying dementia, acute kidney injury and possible related to acute cerebrovascular accident. Continue supportive care. 7. Deep venous thrombosis and gastrointestinal prophylaxis. Disposition pending. Job ID: [id number]
[2019-09-01] MEDS: HumaLOG 300 UNITS/3 ML VIAL SC PRN (18:02)
[2019-09-02] MEDS: Famotidine 20 MG TAB PO SCH ×2 (00:01→08:49)
[2019-09-02] MEDS: Metoprolol Tartrate 25 MG TAB PO SCH ×2 (00:01→08:48)
[2019-09-02] MEDS: Atorvastatin Calcium 20 MG TAB PO SCH (00:02)
[2019-09-02 04:51] LABS: Anion Gap 13 mmol/L (10-20); BUN (Urea Nitrogen) 21 mg/dL (8.4-25.7); Calc. Creatinine Clearance 60 mL/min (70-130); Calcium 9.2 mg/dL (7.8-10.44); Carbon Dioxide 25 mmol/L (23-31); Chloride 102 mmol/L (98-107); Estimated GFR-MDRD 62; Glucose 139 mg/dL (80-115); Potassium 4.3 mmol/L (3.5-5.1); Sodium 136 mmol/L (136-145)
[2019-09-02 04:53] LABS: #Eosinphils 0.2 thou/uL (0.0-0.7); #Lymphocytes 1.5 thou/uL (1.20-3.40); #Monocytes 0.4 thou/uL (0.11-0.59); #Neutrophils 5.1 thou/uL (1.40-6.50); %Basophils 0.2 % (0.0-1.0); %Eosinophils 2.2 % (0.0-10.0); %Monocytes 5.8 % (0.0-10.0); %Neutrophils 70.7 % (42.0-75.0); Hemoglobin 10.6 g/dL (14.0-18.0); Mean Corpuscular HGB CONC 30.5 g/dL (32.0-36.0); Mean Corpuscular Hemoglobin 29.6 pg (27.0-31.0); Mean Platelet Volume 6.5 fL (7.4-10.4); Platelet Count 299 thou/uL (130-400); RBC Distribution Width 11.9 % (11.5-14.5); White Blood Cell (WBC) Count 7.2 thou/uL (4.8-10.8)
[2019-09-02] MEDS: Thiamine 100 MG TAB PO SCH (08:48)
[2019-09-02] MEDS: Losartan 25 MG TAB PO SCH (08:48)
[2019-09-02] MEDS: Aspirin 81 mg Enteric Coated Tablet PO SCH (08:48)
[2019-09-02] MEDS: Folic Acid 1 MG TAB PO SCH (08:48)
[2019-09-02] MEDS: Multivitamin W/ Minerals 1 TAB PO SCH (08:49)
[2019-09-02] MEDS: Amlodipine 10 MG TAB PO SCH (08:49)
[2019-09-02] MEDS: Procaine Penicillin 1,200,000 UNITS/2 ML SYRINGE IM SCH (09:20)
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
[2019-09-02 15:51] VITALS: BP 114/58; TEMP 97.7
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
== END 2019-09-02 19:19 | DRG 64 ==
LOC: ERS 17:15 → 2SE 20:05 → OBSVTOIN 20:05 → 2SE 08-31 22:50
PROVIDERS: ADMIT Internal Medicine; ATTEND Internal Medicine
PROC: 3E0234Z Introduction of Serum, Toxoid and Vaccine into Muscle, Percutaneous Approach (ICD-10-PCS; 2019-08-22)
PROC: 3E02340 Introduction of Influenza Vaccine into Muscle, Percutaneous Approach (ICD-10-PCS; 2019-08-22)
PROC: 009U3ZX Drainage of Spinal Canal, Percutaneous Approach, Diagnostic (ICD-10-PCS; principal; 2019-08-27)
PROC: B01BZZZ Fluoroscopy of Spinal Cord (ICD-10-PCS; 2019-08-27)
DX: I63.81 Other cerebral infarction due to occlusion or stenosis of small artery (principal); A41.9 Sepsis, unspecified organism; G92 Toxic encephalopathy; N17.9 Acute kidney failure, unspecified; A52.3 Neurosyphilis, unspecified; E87.2 Acidosis; F03.91 Unspecified dementia, unspecified severity, with behavioral disturbance; E87.5 Hyperkalemia; E11.9 Type 2 diabetes mellitus without complications; E78.5 Hyperlipidemia, unspecified; I10 Essential (primary) hypertension; F17.210 Nicotine dependence, cigarettes, uncomplicated; F17.290 Nicotine dependence, other tobacco product, uncomplicated; T22.20XA Burn of second degree of shoulder and upper limb, except wrist and hand, unspecified site, initial encounter; T20.24XA Burn of second degree of nose (septum), initial encounter; E87.6 Hypokalemia; X08.8XXA Exposure to other specified smoke, fire and flames, initial encounter; R29.708 NIHSS score 8; R40.2362 Coma scale, best motor response, obeys commands, at arrival to emergency department; R40.2142 Coma scale, eyes open, spontaneous, at arrival to emergency department; R40.2252 Coma scale, best verbal response, oriented, at arrival to emergency department; Z88.0 Allergy status to penicillin; Z91.83 Wandering in diseases classified elsewhere; Z23 Encounter for immunization; Z90.49 Acquired absence of other specified parts of digestive tract; Z79.899 Other long term (current) drug therapy; Z79.82 Long term (current) use of aspirin
CPT/HCPCS: 36415; 36416; 62270; 70450; 70551; 71045; 72020; 80048; 80053; 80306; 80307; 81001; 82010; 82140; 82550; 82607; 82805; 82945; 83630; 83690; 83880; 84157; 84425; 84443; 84484; 85025; 85610; 85730; 86592; 86593; 86644; 86645; 86694; 86695; 86696; 86780; 86788; 86789; 87040; 87070; 87076; 87086; 87149; 87205; 87252; 87324; 87449; 87498; 87633; 89051; 90471; 90686; 90732; 93005; 93306; 93880; 96360; 96361; G0008; G0009; J1650; J2060; J2250; J2510; J2704; J3010; Q0163

== ENCOUNTER 2020-03-13 12:20 | Emergency (ER) | payer MEDICARE ==
--- NOTE | 2020-03-13 12:58 | RAD ---
PORTABLE CHEST 1 VIEW: Date: 03/13/2020 Time: 1254 hours HISTORY: Low oxygen saturation. COMPARISON: 08/21/2019. FINDINGS: The heart size is normal. The aorta is tortuous. No focal areas of consolidation, pneumothoraces, or pleural effusions are seen. IMPRESSION: No radiographic evidence of acute cardiopulmonary process. POS: AH
[2020-03-13 13:15] LABS: #Eosinphils 0.1 thou/uL (0.0-0.7); #Lymphocytes 0.9 thou/uL (1.20-3.40); #Monocytes 0.4 thou/uL (0.11-0.59); #Neutrophils 4.9 thou/uL (1.40-6.50); %Basophils 0.1 % (0.0-1.0); %Eosinophils 1.1 % (0.0-10.0); %Lymphocytes 13.9 % (21.0-51.0); %Monocytes 6.5 % (0.0-10.0); %Neutrophils 78.5 % (42.0-75.0); Mean Corpuscular HGB CONC 31.1 g/dL (32.0-36.0); Mean Corpuscular Hemoglobin 30.2 pg (27.0-31.0); Mean Corpuscular Volume 97.4 fL (78.0-98.0); Mean Platelet Volume 7.1 fL (7.4-10.4); Platelet Count 276 thou/uL (130-400); RBC Distribution Width 13.2 % (11.5-14.5); Red Blood Cell (RBC) Count 3.29 mill/uL (4.70-6.10); White Blood Cell (WBC) Count 6.2 thou/uL (4.8-10.8)
[2020-03-13 13:45] LABS: ALT (SGPT) 23 U/L (8-55); AST (SGOT) 18 U/L (5-34); Albumin 3.6 g/dL (3.4-4.8); Alkaline Phosphatase 55 U/L (40-110); Anion Gap 13 mmol/L (10-20); BUN (Urea Nitrogen) 34 mg/dL (8.4-25.7); Bilirubin, Total 0.6 mg/dL (0.2-1.2); Calc. Creatinine Clearance 0 mL/min (70-130); Calcium 8.8 mg/dL (7.8-10.44); Carbon Dioxide 25 mmol/L (23-31); Chloride 110 mmol/L (98-107); Estimated GFR-MDRD 60; Globulin 2.9 g/dL (2.4-3.5); Glucose 403 mg/dL (80-115); Potassium 3.8 mmol/L (3.5-5.1); Protein, Total 6.5 g/dL (5.8-8.1); Sodium 144 mmol/L (136-145)
--- NOTE | 2020-03-13 13:51 | CT ---
CT HEAD WITHOUT IV CONTRAST COMPARISON: 08/21/2019 HISTORY: Mental status changes. TECHNIQUE: Axial CT imaging at 5 mm intervals from vertex through skull base without contrast FINDINGS: There is decreased attenuation in the periventricular white matter which is nonspecific but likely re flective of chronic small vessel ischemic changes. Remote lacunar infarctions are again seen in each basal ganglia and left thalamus. There is mild cerebral volume loss. The ventricular system is normal in size, shape, and position for the degree of sulcal atrophy. There is no evidence of an acute cortical infarction, hemorrhage, mass effect, or midline shift. Minimal mucosal thickening is seen in the left sphenoid sinus. Dense vascular calcifications are seen in the carotid siphons. Osseous structures appear intact. IMPRESSION: 1. No acute intracranial abnormality demonstrated. 2. Chronic small vessel ischemic changes and cerebral volume loss. 3. Remote lacunar infarctions in each basal ganglia and left thalamus.
[2020-03-13] MEDS ORDERED: Insulin Regular 300 UNITS/3 ML VIAL ONE (14:10)
== END 2020-03-13 17:02 | disposition home or self-care (01) ==
LOC: ERS 12:20
DX: E11.65 Type 2 diabetes mellitus with hyperglycemia (principal); E86.0 Dehydration; E78.5 Hyperlipidemia, unspecified; G30.9 Alzheimer's disease, unspecified; I10 Essential (primary) hypertension; F17.210 Nicotine dependence, cigarettes, uncomplicated
CPT/HCPCS: 36415; 36416; 70450; 71045; 80053; 82010; 83605; 84484; 85025; 96361; 96374; J1815